=== PATIENT | male | born 1975 | race Caucasian/White ===

== ENCOUNTER 2018-05-20 13:32 | Emergency (ER) | payer SELFPAY ==
[2018-05-20] MEDS ORDERED: HALOPERIDOL LACTATE INJ 5 MG/1 ML VIAL IM ONE (15:37)
[2018-05-20 16:25] LABS: ABSOLUTE BASOPHILS # (AUTO) 0.1 10^3/uL (0.0-0.2); ABSOLUTE EOSINOPHILS # (AUTO) 0.4 10^3/uL (0.0-0.6); ABSOLUTE LYMPHOCYTES (AUTO) 2.3 10^3/uL (0.5-4.7); ABSOLUTE MONOCYTES (AUTO) 0.9 10^3/uL (0.1-1.4); ABSOLUTE NEUT (AUTO) 4.6 10^3/uL (1.7-8.2); BASOPHILS % (AUTO) 0.7 % (0-2); EOSINOPHILS % (AUTO) 4.7 % (0-6); HEMATOCRIT 44.3 % (37.9-51.0); HEMOGLOBIN 15.2 g/dL (13.5-17.0); MEAN CORPUSCULAR HEMOGLOBIN 31.5 pg (27.0-33.4); MEAN CORPUSCULAR HGB CONC 34.3 g/dL (32.0-36.0); MEAN CORPUSCULAR VOLUME 92 fl (80-97); MONOCYTES % (AUTO) 10.3 % (3-13); PLATELET COUNT 243 10^3/uL (150-450); RED BLOOD COUNT 4.83 10^6/uL (4.35-5.55); SEGMENTED NEUTROPHILS % (AUTO) 56.3 % (42-78); TOTAL CELLS COUNTED % (AUTO) 100 %; WHITE BLOOD COUNT 8.2 10^3/uL (4.0-10.5)
--- NOTE | 2018-05-20 16:28 | PSYCHOLOGICAL NOTE ---
Psych Note - Psych Note Date seen by psych provider: 05/20/18 Time seen by psych provider: 14:18 - [id number] Psych Note: Reason for Consult: Suicidal ideation hallucinations Patient is a 42 year old male presenting to the emergency department via EMS complaining of hallucinations and suicidal ideation. Patient reports he arrived to [facility] ED via EMS. Patient starts talking, stating "he has the wrong date...2001... He has 2001." He was able to identify that he thought it was the doctor he was talking about. Patient states that he does not know why he came to [facility]; "I do not know why I came I did not want to know this second." Patient confirms he has substance use history starting when he was 13 years old. He reports that over the years he progressed to have different drugs and he is currently been using meth daily for 10 years. He reports he thinks he last used or Sunday and identifies using ice; about a gram." Patient does not appear to have orientation to time. He reports he drink a beer yesterday. When asked about his hallucinations he reports he has been "very often... Yeah, they are vivid... In color... Like right there." Patient reports that he is currently homeless for the most part as "I destroyed all that." He was further explained that his father asked him to leave the home approximately a week ago but he is still currently living in the home. He reports that when EMS arrived he thought they arrived to remove him from the home; "but apparently I called them... That is not normal." Patient confirms he was having thoughts of harming himself because "I found a letter I wrote myself and it was a scary one," Patient is alert and orientated to person place and circumstance. Patient appears to be currently under the influence. Patient reports daily use of methamphetamine; ice. Patient reports passive suicidal ideation i.e. no plans means or intent. Denies homicidal ideation. Cognitive thought processes are currently impaired due to intoxication. Medication recommendations per [facility]'s contracted psychiatrist Dr. 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 Patient reports suicidal ideation and hallucinations. He confirms he is a daily methamphetamine user for the last 10 years. Medication recommendations have been provided. Patient be reevaluated. Dr. Mccray was consulted to care management of this patient; attending physicians in agreement with recomm endations and disposition.
[2018-05-20] MEDS: BENZTROPINE MESYLATE 1 MG TABLET PO SCH (16:36)
[2018-05-20 16:39] LABS: AMORPHOUS SEDIMENT,URINE TRACE /HPF; APPEARANCE,URINE SLIGHTLY-CLOUDY; BILIRUBIN,URINE NEGATIVE (NEGATIVE); COLOR,URINE AMBER; GLUCOSE, URINE NEGATIVE (NEGATIVE); KETONES,URINE NEGATIVE (NEGATIVE); LEUKOCYTE ESTERASE,URINE NEGATIVE (NEGATIVE); NITRITE,URINE NEGATIVE (NEGATIVE); PROTEIN,URINE NEGATIVE (NEGATIVE); URINE SPECIFIC GRAVITY 1.018; UROBILINOGEN,URINE NEGATIVE mg/dL (<2.0)
[2018-05-20 16:45] LABS: ALANINE AMINOTRANSFERASE 163 U/L (21-72); ALBUMIN 3.7 g/dL (3.5-5.0); ALKALINE PHOSPHATASE 86 U/L (38-126); ASPARTATE AMINO TRANSFERASE 123 U/L (17-59); BILIRUBIN,DIRECT 0.2 mg/dL (0.0-0.4); BILIRUBIN,TOTAL 0.4 mg/dL (0.2-1.3); BLOOD UREA NITROGEN 21 mg/dL (7-20); CALCIUM 9.5 mg/dL (8.4-10.2); GLUCOSE 86 mg/dL (75-110); POTASSIUM 4.6 mmol/L (3.6-5.0); TOTAL PROTEIN 6.8 g/dL (6.3-8.2)
[2018-05-20 16:46] LABS: URINE AMPHETAMINES SCREEN NEGATIVE; URINE BARBITURATES SCREEN NEGATIVE; URINE BENZODIAZEPINES SCREEN NEGATIVE; URINE COCAINE SCREEN NEGATIVE; URINE MARIJUANA (THC) SCREEN NEGATIVE; URINE METHADONE SCREEN NEGATIVE; URINE PHENCYCLIDINE SCREEN NEGATIVE
[2018-05-20 16:56] LABS: CARBON DIOXIDE 28 mmol/L (22-30); CHLORIDE 105 mmol/L (98-107); SODIUM 136.5 mmol/L (137-145)
[2018-05-20 16:58] LABS: ACETAMINOPHEN < 10 ug/mL (10-30); ALCOHOL < 10 mg/dL (NONE DETECTED); SALICYLATE < 1.0 mg/dL (2.0-20.0)
[2018-05-20 16:59] LABS: ANION GAP 4 (5-19)
--- NOTE | 2018-05-20 18:07 | ER Document Report ---
Entered by CHARANJIT HOANG SCRIBE 05/20/18 1442 Acting as scribe for:SCOTT CALVILLO MD ED Psych Disorder / Suicide - General Chief Complaint: Psych Problem Stated Complaint: PSYCH EVAL Time Seen by Provider: 05/20/18 14:17 Mode of Arrival: Ambulatory Information source: Patient Notes: Patient is a 42 year old male presenting to the emergency department via EMS com plaining of hallucinations and suicidal ideation. Patient states he has been having visual hallucinations further stating he visualizes shapes and people out in the [place]. He also complains of auditory hallucinations stating he hears voices telling him to harm himself further stating "on the left side, its always on the left side, they want me to cut the left side". He states he has possibly been kicked out of the house again because he has "done something to scare everyone". Patient states he abuses opiates but has recently weaned himself and is now doing meth. TRAVEL OUTSIDE OF THE [place] IN LAST 30 DAYS: Yes - Related Data Allergies/Adverse Reactions: No Known Allergies Allergy (Verified 06/13/12 11:52) Past Medical History - General Information source: Patient - Social History Smoking Status: Current Every Day Smoker Cigarette use (# per day): Yes Chew tobacco use (# tins/day): No Smoking Education Provided: No Frequency of alcohol use: Occasional Drug Abuse: Marijuana, Prescription drugs Family History: None Neurological Medical History: Reports: Hx Seizures - Immunizations Hx Diphtheria, Pertussis, Tetanus Vaccination: No Review of Systems - Review of Systems Constitutional: No symptoms reported EENT: No symptoms reported Cardiovascular: No symptoms reported Respiratory: No symptoms reported Gastrointestinal: No symptoms reported Genitourinary: No symptoms reported Male Genitourinary: No symptoms reported Musculoskeletal: No symptoms reported Hematologic/Lymphatic: No symptoms reported Neurological/Psychological: See HPI, Hallucinations, Suicidal ideation -: Yes All other systems reviewed and negative Physical Exam - Vital signs Vitals: Temp Pulse Resp BP Pulse Ox 97.4 F 71 18 120/91 H 95 05/20/18 14:20 05/20/18 14:20 05/20/18 14:20 05/20/18 14:20 05/20/18 14:20 - Notes Notes: GENERAL: Alert, appears paranoid and to be responding to internal stimuli. No acute distress. HEAD: Normocephalic, atraumatic. EYES: Pupils equal, round, and reactive to light. Extraocular movements intact. ENT: Oral mucosa moist, tongue midline. NECK: Full range of motion. Supple. Trachea midline. LUNGS: Clear to auscultation bilaterally, no wheezes, rales, or rhonchi. No respiratory distress. HEART: Regular rate and rhythm. No murmurs, gallops, or rubs. ABDOMEN: Soft, non-tender. Non-distended. Bowel sounds present in all 4 quadrants. No guarding, rigidity, or rebound. EXTREMITIES: Moves all 4 extremities spontaneously. No edema. No cyanosis. NEUROLOGICAL: Alert and oriented x3. Normal speech. PSYCH: Appears paranoid and to be responding to internal stimuli SKIN: Warm, dry, normal turgor. No rashes or lesions noted. Course - Re-evaluation Re-evalutation: 05/20/18 18:29 IVC paperwork was filled out on the patient in case he becomes more psychotic this evening or tries to leave. - Vital Signs Vital signs: Temp Pulse Resp BP Pulse Ox 97.4 F 71 18 120/91 H 95 05/20/18 14:20 05/20/18 14:20 05/20/18 14:20 05/20/18 14:20 05/20/18 14:20 - Laboratory Result Diagrams: 05/20/18 16:02 05/20/18 16:02 Laboratory results interpreted by me: 05/20/18 16:02 Sodium 136.5 L Anion Gap 4 L BUN 21 H AST 123 H ALT 163 H Salicylates < 1.0 L Acetaminophen < 10 L - EKG Interpretation by Fl EKG shows normal: Sinus rhythm, [place], Intervals, QRS Complexes, ST-T Waves Rate: Normal - 65 Rhythm: NSR P Waves: LAE Discharge - Discharge Clinical Impression: Hallucinations, Acute psychosis, Substance abuse Condition: Stable Disposition: PSYCH HOSP/UNIT I personally performed the services described in the documentation, reviewed and edited the documentation which was dictated to the scribe in my presence, and it accurately records my words and actions.
[2018-05-20] MEDS: HALOPERIDOL 5 MG TABLET PO SCH (19:20)
--- NOTE | 2018-05-20 20:03 | EKG REPORT ---
SEVERITY:- BORDERLINE ECG - SINUS RHYTHM PROBABLE LEFT ATRIAL ABNORMALITY : Confirmed by: Dee Dee Nicholson MD 20-May-2018 20:02:35
[2018-05-21] MEDS: HALOPERIDOL 5 MG TABLET PO SCH (10:27)
[2018-05-21] MEDS: BENZTROPINE MESYLATE 1 MG TABLET PO SCH (10:27)
--- NOTE | 2018-05-21 14:06 | PSYCHOLOGICAL NOTE ---
Psych Note - Psych Note Date seen by psych provider: 05/21/18 Time seen by psych provider: 08:00 Psych Note: Reason for consult: AH, SI Contact Permissions: Patient is a 42 yo male presenting to the ED via EMS for concerns of SI and AH with hx of heroin addiction for 7 years and methamphetamine dependence for three years. Patient reports he is a recovered heroin addict but that he just substituted one drug for another and has been using methamphetamine ever since. His last use was or Sunday. He had no utensils to use so had a full bag in my hand and just absorbed it through my skin because I was sweating". He says that he's hit bottom and would like to stop using so he can be a part of his 10 year old daughter's life. He tried to see her three days ago and was not allowed so wrote a letter about that. Patient admits he doesn't really want h is daughter to see him like this. He has lost 30 - 40 lbs. He denies depression and "only sort of" remembers having suicidal thoughts. Patient identifies his dad and friends as supports and can go back to his dad's home as long as he's not using and keeps the house clean. His friends are primarily from work. 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 He declines detox. I detoxed enough already and I'm eating fine. I've done this before and know I need lots of fluids, stay away from users and drugs. I've been getting to a place where I knew I had to do it (stop using)/I had been looking for treatment but need something in [place]. He relays that he's done [facility] in the past. Patient is alert and oriented x 4. Mood is euthymic with congruent affect aeb patient is calm, polite, and cooperative. Patient denies SI, HI, and AV/H, does not appear to be responding to internal stimuli, and no delusions were noted. Conversational speech was WNL for rate, tone, and prosody. Eye contact was well maintained. Thought processes were linear, organized, and rational. Intellectual abilities were estimated within the average range. Attention/concentration was WNL while, insight, judgment, and impulse control were good. 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 Johann BEAVERS are as follows Haldol 10 mg IM once Haldol 5 mg twice daily Cogentin 1 mg daily Impression/Plan: Patient is psychiatrically clear from acute psychiatric services and recommended to rescind IVC due to risk of harm to self or others aeb Patient denies SI, HI, and AV/H, does not appear to be responding to internal stimuli, and no delusions were noted. Plan is to discharge to home with his father and self-care with patient verbalizing that he will attend meeting close to home. Patient declined detox and declined OP SA treatment due to lack of transportation and states he can walk to . Patient is a 42 yo male with hx of heroin addiction for 7 years and methamphetamine dependence for three years. Patient does verbalize that he wants to stop using so he can be in his daughter's life. Behavioral Health provided psychoeducation on adverse effects of illicit drug use and treatment options. MCS and MH/SA resources were provided to client which he states he already has at home. Consulted Dr. Mccray in the care and treatment of this patient and ED physician who is in agreement with disposition and recommendation.
[2018-05-21 14:08] VITALS: BP 109/70
== END 2018-05-21 13:30 | disposition home or self-care (01) ==
LOC: ER 13:32
DX: F23 Brief psychotic disorder (principal); F19.10 Other psychoactive substance abuse, uncomplicated; F17.210 Nicotine dependence, cigarettes, uncomplicated
CPT/HCPCS: 93005; 99285; 96372; 36415; 80307 ×4; 85025; 80053; 81001; 93010; J1630